=== PATIENT | male | born 1955 | race Caucasian/White ===

== ENCOUNTER → 2017-02-07 | Outpatient (CLI) | payer OTHER ==
[~2017-02-07] MED LIST: KLONOPIN2 MG PO; ZETIA PO
== END | disposition home or self-care (01) ==
LOC: CLAB 10:25
DX: R97.20 Elevated prostate specific antigen [PSA] (principal)
CPT/HCPCS: 36415; G0103

== ENCOUNTER → 2017-02-07 | Outpatient (CLI) | payer OTHER ==
--- NOTE | ~2017-02-07 | CR63 ---
[facility] A Service of [facility] & [facility] RADIOLOGY TEXT RESULTS PATIENT: JEFF GOODWIN LOCATION: [facility] : 53 UNIT #: [id number] AGE: [address]: Mustapha Suarez MD SEX: M ORDER DR: [id number] [facility] [address] [facility] [place], [place] [address] [id number] O MR#: [id number] Acc #: [id number] NAME: JEFF GOODWIN : 1955 SEX: M STUDY DATE/TIME: 02/07/2017 10:32 UNIT: [facility] ROOM: STUDY DESCRIPTION: CR Chest 2 View Attending Physician: Mustapha Suarez Jr., M.D. Referring Physician: Mustapha Suarez Jr., M.D. Ordering Physician: Mustapha Suarez Jr., M.D. Primary Care Physician: Sam Parham M.D. MEDICAL IMAGING REPORT This report is preliminary unless electronic signature is present EXAM PA and lateral chest radiograph 02/07 COMPARISON 01/17/2015. HISTORY Monitoring for side effects of medications related to psoriasis. FINDINGS PA and lateral views are obtained. The cardiovascular configuration is normal. Lungs are clear. CONCLUSION 1. Normal chest. Dictated by... Gera Flores M.D. THIS IS AN ELECTRONICALLY VERIFIED REPORT Gera Flores M.D. at 02/08/2017 7:10 AM UZMA/edmundo TD: 02/07/2017 15:24 JOB #: [id number] MEDICAL IMAGING REPORT Page 1 of 1 COPY
[2017-02-07 10:43] LABS: BASOPHIL# 0.1 X10e3 (0-0.3); BASOPHIL% 0.8 % (0-2.5); EOSINOPHIL# 0.2 X10e3 (0-0.7); EOSINOPHIL% 2.4 % (0.0-7.0); HEMATOCRIT 47.6 % (38.0-50.0); HEMOGLOBIN 16.2 gm/dL (13.0-16.0); LYMPHOCYTE# 1.9 X10e3 (1.0-3.5); LYMPHOCYTE% 23.1 % (17.0-45.0); MEAN CELL VOLUME 89.1 FL (83-96); MEAN CORPUSCULAR HEMOGLOBIN 30.2 PG (28-34); MEAN CORPUSCULAR HGB CONC 33.9 g/dL (30-36); MEAN PLATELET VOLUME 8.6 FL (6.5-11.5); MONOCYTE# 0.8 X10e3 (0-1.0); MONOCYTE% 10.1 % (3.0-12.0); NEUTROPHIL# 5.3 X10e3 (1.5-7.1); NEUTROPHIL% 63.6 % (40-75); PLATELET COUNT 178 X10e3 (140-420); RED BLOOD COUNT 5.35 X10e (3.90-5.60); RED CELL DISTRIBUTION WIDTH 13.6 % (11.0-15.5); WHITE BLOOD COUNT 8.3 X10e3 (4.0-10.5)
[2017-02-07 10:44] LABS: DIFF IND NO
[2017-02-07 11:28] LABS: ALBUMIN SERUM 4.2 g/dL (3.5-5.0); BILIRUBIN,TOTAL 0.6 mg/dL (0.2-2.0); BUN/CREATININE RATIO 14.54; CALCIUM SERUM 9.3 mg/dL (8.4-10.2); CREATININE SERUM 1.1 mg/dL (0.6-1.4); GLOM FILT RATE Estimated 71.6 mL/min (>60); POTASSIUM 4.5 mmol/L (3.5-5.1); PROTEIN TOTAL SERUM 7.1 g/dL (6.0-8.3)
== END | disposition home or self-care (01) ==
LOC: CRAD 10:19
PROVIDERS: Dermatology
DX: L70.0 Acne vulgaris (principal); Z79.899 Other long term (current) drug therapy
CPT/HCPCS: 36415; 71020; 80053; 85025

== ENCOUNTER → 2017-05-03 | Day surgery (SDC) | payer OTHER ==
--- NOTE | ~2017-05-03 | OR ---
Unit #: [id number] #: [id number] Patient: JEFF GOODWIN [id number] [address] [place], [place] [address] [id number] O MR#: [id number] NAME: JEFF GOODWIN ROOM: Date of Procedure: 05/03/2017 Admission Date: 05/03/2017 Surgeon: Krish Castillo M.D. : 1955 Attending Physician: Krish Castillo M.D. Primary Care Physician: Sam Parham M.D. OPERATIVE REPORT PREOPERATIVE DIAGNOSES The patient presented for colorectal cancer screening. He has no family history of colon cancer. PROCEDURES PERFORMED Colonoscopy and polypectomy. POSTOPERATIVE DIAGNOSES 1. Single sessile polyp about 8 mm in size in the mid sigmoid colon, removed using snare cautery polypectomy. 2. Medium-sized internal hemorrhoids. 3. Rest of the examination up to cecum and terminal ileum was normal. The quality of prep was excellent. RECOMMENDATIONS 1. Follow up results of polyp histology. 2. Consider repeat colonoscopy in 5 years. SEDATION USED MAC. DESCRIPTION OF PROCEDURE Following detailed explanation of the potential risks and complications of a colonoscopy, namely perforation, bleeding, and complications related to sedation, the patient was brought to GI lab and laid in the left lateral decubitus position. A digital rectal examination was performed, which was normal. Lubricated tip of the Olympus video colonoscope was inserted through the anus and advanced under direct vision. The scope was advanced and passed up to sigmoid into descending colon. No diverticula were noted in this area. The scope tip was then navigated all the way up to cecum with visualization of ileocecal valve and the appendiceal orifice. Preparation was excellent with good visualization and photodocumentation was obtained. Last several inches of the terminal ileum also visualized after intubation of the ileocecal valve and appeared normal. Successive segments of the colonic mucosa were examined upon withdrawal and appeared unremarkable. A single sessile polyp was noted in the mid sigmoid colon. The latter was about 8 mm in size. It was removed using snare polypectomy. The polyp was retrieved and sent for histology. No additional polyps were noted. The patient did have medium-sized internal hemorrhoids seen both during retroflexion as well as during antegrade examination of the rectum. The scope was then withdrawn. The patient returned to the recovery area. He tolerated the procedure without any Unit #: [id number] #: [id number] Patient: JEFF GOODWIN postprocedure complications. Dictated by... Avani Cervantes/sharifa TD: 05/03/2017 15:35 JOB #: [id number] OPERATIVE REPORT Page 1 of 1 X Krish Castillo MD X PROCEDURE OPERATIVE NOTE
== END | disposition home or self-care (01) ==
LOC: COPS 06:27
DX: Z12.11 Encounter for screening for malignant neoplasm of colon (principal); K63.5 Polyp of colon; K64.8 Other hemorrhoids; N40.0 Benign prostatic hyperplasia without lower urinary tract symptoms; E78.5 Hyperlipidemia, unspecified; Z80.0 Family history of malignant neoplasm of digestive organs; Z79.899 Other long term (current) drug therapy
CPT/HCPCS: 88305